=== PATIENT | female | born 2000 | race Caucasian/White ===

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

== ENCOUNTER 2023-06-06 11:34 | Outpatient (CLI) | payer BC, SELFPAY ==
[2023-06-08 06:43] LABS: DHEA-Sulfate 409 mcg/dL (44-286)
[2023-06-11 15:27] LABS: Testosterone Free 2.6 pg/mL (0.1-6.4); Testosterone Total 62 ng/dL (2-45)
== END 2023-06-06 11:35 | disposition home or self-care (01) ==
LOC: ANHLAB 11:37
PROVIDERS: PCP Nurse Practitioner Family; Visit Provider Obstetrics & Gynecology
DX: E28.2 Polycystic ovarian syndrome (principal)
CPT/HCPCS: 36415; 82627; 84402; 84403

== ENCOUNTER 2023-08-18 14:04 | Outpatient (CLI) | payer BC, SELFPAY ==
[2023-08-18 16:13] LABS: Alanine Aminotransferase 14 U/L (6-35); Albumin Level 4.3 g/dL (3.5-5.1); Alkaline Phosphatase 68 U/L (38-126); Anion Gap 11 mmol/L (4-12); Aspartate Amino Transferase 20 U/L (14-36); Bilirubin,Total 0.2 mg/dL (0.2-1.3); Blood Urea Nitrogen 12 mg/dL (7-17); Calcium 9.9 mg/dL (8.4-10.2); Carbon Dioxide 27 mmol/L (22-30); Chloride 103 mmol/L (98-107); Estimated Glomerular Filt Rate > 60; Glucose 98 mg/dL (65-110); Potassium 4.4 mmol/L (3.4-5.0); Sodium 141 mmol/L (137-145)
[2023-08-19 10:14] LABS: DHEA-Sulfate 383 mcg/dL (44-286)
[2023-08-19 13:09] LABS: Insulin Level Total 69.4 uIU/mL
[2023-08-20 13:22] LABS: Hemoglobin A1C 5.3 % (<5.7)
[2023-08-21 17:23] LABS: Testosterone Free 2.4 pg/mL (0.1-6.4); Testosterone Total 50 ng/dL (2-45)
[2023-09-01 22:09] LABS: Free Insulin 44.6 uIU/mL (1.5-14.9)
== END 2023-08-18 14:05 | disposition home or self-care (01) ==
LOC: ANHLAB 14:06
PROVIDERS: PCP Nurse Practitioner Family; Visit Provider Obstetrics & Gynecology
DX: E28.2 Polycystic ovarian syndrome (principal)
CPT/HCPCS: 36415; 80053; 82627; 83036; 83525; 83527; 84402; 84403

== ENCOUNTER 2023-08-22 00:24 | Day surgery (SDC) | payer BC, SELFPAY ==
[2023-08-18 10:12] VITALS: BMI 31.2
[2023-08-22 10:44] VITALS: BP 129/72; PULSE 85; RESP 16; TEMP 36.4; O2SAT 98
--- NOTE | 2023-08-22 10:53 | WPDANESEPPF ---
Anes - Initial Pre Proc Eval Procedure: Operation Date: 08/22/23 13:00 Proposed Procedures p Esophagogastroduodenoscopy - Henrry Alonzo MD Date/Time: 08/22/23 10:53 Surgeon: Henrry Alonzo MD Pre Op Diagnosis: GERD, Vomiting Patient Data Age: 23 Gender: F Height: 1.55 m Weight: 75.3 kg Last Vital Signs Temp 97.6 F 08/22/23 10:44 Pulse 85 08/22/23 10:44 Resp 16 08/22/23 10:44 BP 129/72 08/22/23 10:44 Pulse Ox 98 08/22/23 10:44 O2 Del Method Room Air 08/22/23 10:44 Allergies Allergy/AdvReac Type Severity Reaction Status Date / Time No Known Allergies Allergy Verified 08/22/23 10:42 Home Medications Medication Instructions Recorded Confirmed Type drospirenone 3 mg-ethinyl 1 tablet PO DAILY #112 tabs 07/30/23 08/22/23 Rx estradiol 0.03 mg tablet lansoprazole 30 mg capsule,delayed 30 mg PO BID 07/30/23 08/22/23 History release levothyroxine 25 mcg tablet 25 mcg PO DAILY 07/30/23 08/22/23 History spironolactone 100 mg tablet 100 mg PO DAILY #90 tabs 07/30/23 08/22/23 Rx metformin 500 mg tablet 500 mg PO DAILY #60 tabs 08/22/23 08/22/23 Rx Patient hx anesthesia problems: none Family hx anesthesia problems: none Results Review: All pre-operative results and documents have been reviewed as part of the pre-operative evaluation. [facility] Past Medical History Medical History (Updated 07/30/23 @ 15:14 by Sigrid Walton MD) Gastroesophageal reflux disease Hypothyroid PCOS (polycystic ovarian syndrome) Surgical History Surgical History H/O wisdom tooth extraction History of repair of ACL 06/2019 Family History Family History (Updated 07/30/23 @ 14:44 by Mahi Baez MA) Other Hyperlipidemia Social History Social History (Updated 07/30/23 @ 14:44 by Mahi Baez MA) Smoking status: Never smoker Alcohol intake: never Substance use: never Substance use type: does not use Do You Feel Safe in your Home?: Yes Lack of Transportation: No Lack of Food: Never True Current Housing: I Have Housing Concerned About Future Housing: No Difficulty Paying Gas/Electric Bills: No Difficulty Paying for Meds: No Currently Unemployed: No Education: High School Diploma/GED Difficulty w/ Childcare or Family Care: No Living arrangements: alone Additional living arrangements comments: IN COLLEGE LIVES ALONE, SUMMER AT HOME Occupation/Education: occupation Additional occupation/education comments: [employer] 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 [employer] Gender identity (if verbalized by the patient): Female Sexual Orientation (if Verbalized by the Patient): Straight or Heterosexual Spiritual care concerns: No Anes - Eval Final PreProcedure Day of Procedure 08/22/23 10:53 Patient weight: obese Heart: regular rate and rhythm Lungs: clear to auscultation Airway: Mallampati scale class II Neurological: alert and oriented Last oral intake: >/= 8 hours ASA classification: II Emergent: no Anesthetic plan: proceed Anesthesia type and monitoring: general GIVS and standard monitoring Results Review: All pre-operative results and documents have been reviewed as part of the pre-operative evaluation. Informed Consent: The patient's anesthetic plan and its attendant risks and benefits were discussed with the patient/family/POA. Questions were solicited and answers provided to the satisfaction of the patient/family/POA.
[2023-08-22] MEDS: LACTATED RINGERS 1,000 ML 150 ML IV CONT (10:55)
--- NOTE | 2023-08-22 11:27 | PM.HPGS ---
History of Present Illness History of Present Illness Consent: Risks, benefits, and alternatives have been discussed and questions answered. Patient agrees to proceed with procedure. Chief complaint: GERD, Vomiting Narrative: Kat Mcduffie is a 23 year old female with gerd for 2 years but much better since using lansoprazole bid, never had egd Review of Systems Review of Systems: All systems reviewed & are unremarkable except as noted in HPI and below PMFSH Past Medical History Medical History (Updated 08/22/23 @ 11:28 by Henrry Alonzo MD) Gastroesophageal reflux disease Hypothyroid PCOS (polycystic ovarian syndrome) Surgical History Surgical History H/O wisdom tooth extraction History of repair of ACL 06/2019 Family History Family History (Updated 07/30/23 @ 14:44 by Mhai Baez MA) Other Hyperlipidemia Social History Social History (Updated 07/30/23 @ 14:44 by Mahi Baez MA) Smoking status: Never smoker Alcohol intake: never Substance use: never Substance use type: does not use Do You Feel Safe in your Home?: Yes Lack of Transportation: No Lack of Food: Never True Current Housing: I Have Housing Concerned About Future Housing: No Difficulty Paying Gas/Electric Bills: No Difficulty Paying for Meds: No Currently Unemployed: No Education: High School Diploma/GED Difficulty w/ Childcare or Family Care: No Living arrangements: alone Additional living arrangements comments: IN COLLEGE LIVES ALONE, SUMMER AT HOME Occupation/Education: occupation Additional occupation/education comments: [employer] 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[employer] 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 [employer] Gender identity (if verbalized by the patient): Female Sexual Orientation (if Verbalized by the Patient): Straight or Heterosexual Spiritual care concerns: No Meds Home Medications and Allergies Home Medications Medication Instructions Recorded Confirmed Type drospirenone 3 mg-ethinyl 1 tablet PO DAILY #112 tabs 07/30/23 08/22/23 Rx estradiol 0.03 mg tablet lansoprazole 30 mg capsule,delayed 30 mg PO BID 07/30/23 08/22/23 History release levothyroxine 25 mcg tablet 25 mcg PO DAILY 07/30/23 08/22/23 History spironolactone 100 mg tablet 100 mg PO DAILY #90 tabs 07/30/23 08/22/23 Rx metformin 500 mg tablet 500 mg PO DAILY #60 tabs 08/22/23 08/22/23 Rx Allergies Allergy/AdvReac Type Severity Reaction Status Date / Time No Known Allergies Allergy Verified 08/22/23 10:42 Vital Signs Vital Signs - 24 hr 08/22/23 10:44 Temperature 97.6 F Pulse Rate 85 Respiratory Rate 16 Blood Pressure 129/72 Pulse Oximetry 98 Oxygen Delivery Room Air Exam Const: General: comfortable and no acute distress HENMT: Face/Nose/Sinus: Normal nares present Eyes: General: appearance normal, both eyes and all related structures Neck: Neck: no JVD Resp: Auscultation: clear to auscultation bilaterally Cardio: Rate: regular rate Rhythm: regular rhythm GI: Inspection: non-distended GI Palp: Yes Soft to palpation Skin: General skin exam: normal color Neuro: General: gait normal Speech: normal speech Extrem: General: normal to inspection Psych: Mental Status: mental status grossly normal Assessment and Plan Assessment and plan (1) Gastroesophageal reflux disease: Code(s): K21.9 - Gastro-esophageal reflux disease without esophagitis Status: Acute Assessment and Plan: egd with bx will refill her ppi
[2023-08-22 11:34] VITALS: BP 119/79; PULSE 87; RESP 16; O2SAT 98
[2023-08-22 11:44] VITALS: BP 129/83; PULSE 79; RESP 22; O2SAT 97
[2023-08-22 11:54] VITALS: BP 122/86; PULSE 61; RESP 14; O2SAT 100
== END 2023-08-22 12:00 | disposition home or self-care (01) ==
PROVIDERS: PCP Nurse Practitioner Family; Visit Provider Internal Medicine Gastroenterology
PROC: 0DJ08ZZ Inspection of Upper Intestinal Tract, Via Natural or Artificial Opening Endoscopic (ICD-10-PCS; CPT 43235; principal; 2023-08-22 13:00)
DX: K31.89 Other diseases of stomach and duodenum (principal); K21.9 Gastro-esophageal reflux disease without esophagitis; E03.9 Hypothyroidism, unspecified; E28.2 Polycystic ovarian syndrome; E66.9 Obesity, unspecified; Z68.31 Body mass index [BMI] 31.0-31.9, adult; Z98.890 Other specified postprocedural states; Z79.84 Long term (current) use of oral hypoglycemic drugs
CPT/HCPCS: 43239; 88305; J2704; J7120

== ENCOUNTER 2024-08-18 11:18 | Outpatient (CLI) | payer BC, SELFPAY ==
--- OUTSIDE RECORDS SUMMARY | 2024-08-18 11:21 | XMS_ITS | Encounter Summary ---
Author Organization [facility] Address [address] [place] [address] Care Team Providers Care Jig Grinder Set Up Operator Name Role Phone Steven Rangel MD Primary Care Provide r Encounter Details Date Type Department Care Team (Late st Contact Info) Description 09/21/2021 Cell>Point Message [address] [address] Sukumar Rangel, [facility] [address] [address] Reflux Social History Tobacco Use Types Packs/Day Years Used Date Smoking Tobacco: Never Smokeless Tobacco: Never Alcohol Use Standard Drinks/Week Comments Not Currently 0 (1 standard drink = 0.6 oz pur e alcohol) PHQ-2 Answer Date Recorded PHQ-2 Score - If the patient scores above 3, please move on to questions 3-9 0 07/24/2021 Comments No Sex and Gender Information Value Date Recorded Sex Assigned at Not on file Legal Sex Female 11:14 PM CDT Gender Identity Not on file Sexual Orientation Not on file COVID-19 Exposure Response Date Recorded In the last 10 days, have yo u been in contact with someone who was confirmed or suspected to have Coronavirus/COVID-19? No / Unsure 09/06/2021 10:37 AM CDT documented as of this encounter Progress Notes * Judith Chanel RN - 09/21/2021 3:20 PM CDT Please advise. documented in this encounter Plan of Treatment Upcoming Encounters Date Type Department Care Team (Late st Contact Info) Description 09/02/2024 8:00 AM CDT Office Visit [facility] [address] [place] [address] Sukumar Rangel, [facility] [address] [place] [address] documented as of this encounter Visit Diagnoses Not on filedocumented in this encounter Additional Health Concerns Assessment Noted Time PHQ-9 Depression Total Score: 1 07/14/19 19 1:06 PM CDT documented as of this encounter Care Teams Jig Grinder Set Up Operator Relationship Specialty [place] [address] [place] [address] PCP - General INTERNAL MEDICINE 07/13/18 documented as of this encounter
--- OUTSIDE RECORDS SUMMARY | 2024-08-18 11:21 | XMS_ITS | Encounter Summary ---
Author Organization [facility] Address [facility] [place] [address] Care Team Providers Care Coffee Sampler Name Role Phone Steven Rangel MD Primary Care Provide r Encounter Details Date Type Department Care Team (Late st Contact Info) Description 03/07/2022 Kaizen Platform Message [facility] [address] [address] [place] [address] [place] [address] [place] [address] Reflux Social History Tobacco Use Types [...] on file Sexual Orientation Not on file documented as of this encounter Progress Notes * Sukumar Rangel, VANE - 03/08/2022 12:54 PM CSTSummary: GERD Tell pt I called in Protonix 40 mg to her pharmacy, it is stronger than Omeprazole-Prilosec, take 1tab every morning, also can chew up Pepcid Complete anytime of day or night for breakthrough acid symptoms, try to limit caffeine to 1 per day as well, call in 1 week with update [employer]IT[employer] MAINTENANCE * VANE Loya - 03/08/2022 10:52 AM CSTSummary: GERD Tell pt there is a prescription acid med that could work stronger than otc Prilosec, is there a local pharmacy she can use? Also ask how is her caffeine intake? [employer] MAINTENAN[employer] documented in this encounter Plan of Treatment Upcoming Encounters Date Type Department Care Team (Late st Contact Info) Description 09/02/2024 8:00 AM CDT Office Visit [facility] [address] [place] [id number] Sukumar Rangel FNP [address] [place] [address] documented as of this encounter Visit Diagnoses Not on filedocumented in this encounter Additional Health Concerns Assessment Noted Time PHQ-9 Depression Total Score: 1 07/14/19 19 1:06 PM CDT documented as of this encounter Care Teams Coffee Sampler Relationship Specialty [place] [address] [place] [address] PCP - General INTERNAL MEDICINE 07/13/18 documented as of this encounter
--- OUTSIDE RECORDS SUMMARY | 2024-08-18 11:21 | XMS_ITS | Encounter Summary ---
Author Organization [facility] Address [address] [place] [address] Care Team Providers Care Assistant Producer Name Role Phone Steven Rangel MD Primary Care Provide r Encounter Details Date Type Department Care Team (Late st Contact Info) Description 04/22/2022 Black Raven and Stag Message [facility] [address] [place] [address] [facility] [address] [place] [address] Reflux Social History Tobacco Use Types Packs/Day Years Used Date Smoking Tobacco: Never Smokeless Tobacco: Never Alcohol Use Standard Drinks/Week Comments Not Currently 0 (1 standard drink = 0.6 oz pur e alcohol) PHQ-2 Answer Date Recorded Patient Health Questionnaire-2 Score 0 04/25/2022 Comments No Sex and Gender Information Value Date Recorded Sex Assigned at Not on file Legal Sex Female 11:14 PM CDT Gender Identity Not on file Sexual Orientation Not on file COVID-19 Exposure Response Date Recorded In the last 10 days, have yo u been in contact with someone who was confirmed or suspected to have Coronavirus/COVID-19? No / Unsure 04/25/2022 7:36 AM CDT documented as of this encounter Functional Status * Over the past 2 weeks, how often have you been bothered by any of the following problems? Question Answer Date of Assessment Author Status Little interest or pleasure in doing things Not at all 04/25/2022 7:39 AM CDT Mitra Kim MA Active Feeling down, depressed, or hopeless Not at all 04/25/2022 7:39 AM CDT Betty Kim MA Active Patient Health Questionnaire-2 Score 0 04/25/2022 7:39 AM CDT Ulices Kim MA Active documented as of this encounter Plan of Treatment Upcoming Encounters Date Type Department Care Team (Late st Contact Info) Description 09/02/2024 8:00 AM CDT Office Visit [facility] [address] [place] [address] Sukumar Rangel FNP [address] [place] [address] documented as of this encounter Visit Diagnoses Not on filedocumented in this encounter Additional Health Concerns Assessment Noted Time PHQ-9 Depression Total Score: 1 07/14/19 19 1:06 PM CDT documented as of this encounter Care Teams Assistant Producer Relationship Specialty [place] [address] [place] [address] PCP - General INTERNAL MEDICINE 07/13/18 documented as of this encounter
--- OUTSIDE RECORDS SUMMARY | 2024-08-18 11:21 | XMS_ITS | Encounter Summary ---
Author Organization [facility] Address [address] [place] [address] Care Team Providers Care Furniture Assembler Name Role Phone Steven Rangel MD Primary Care Provide r Encounter Details Date Type Department Care Team (Late Contact Info) Description 06/13/2022 Smart [place] Message Enc [facility] [address] [place] [address] [facility] Provider Schedule Appointment for Annual Physical Social History Tobacco Use Types Packs/Day Years Used Date Smoking Tobacco: Never Passive Smoke Exposure: Never Smokeless Tobacco: Never Alcohol Use Standard [...] on file documented as of this encounter Plan of Treatment Upcoming Encounters Date Type Department Care Team (Late Contact Info) Description 09/02/2024 8:00 AM CDT Office Visit [facility] [address] [place] [address] Sukumar Rangel, [facility] [address] [place] [address] documented as of this encounter Visit Diagnoses Not on filedocumented in this encounter Additional Health Concerns Assessment Noted Time PHQ-9 Depression Total Score: 1 07/14/19 19 1:06 PM CDT documented as of this encounter Care Teams Furniture Assembler Relationship Specialty [place] [address] [facility] [address] [place] [address] PCP - General INTERNAL MEDICINE 07/13/18 documented as of this encounter
--- OUTSIDE RECORDS SUMMARY | 2024-08-18 11:21 | XMS_ITS | Encounter Summary ---
Author Organization [facility] Address [address] [place] [address] Care Team Providers Care Psychologists Name Role Phone Steven Rangel MD Primary Care Provide r Encounter Details Date Type Department Care Team (Late st Contact Info) Description 03/26/2022 Vetteryhart Message Enc [facility] [address] [place] [address] Sukumar Rangel, BUSINESS CONSULTANT [address] [place] [address] Reflux Social History Tobacco Use [...] Description 09/02/2024 8:00 AM CDT Office Visit [facility] [address] [place] [address] Sukumar Rangel, [facility] [address] [place] [address] documented as of this encounter Visit Diagnoses Not on filedocumented in this encounter Additional Health Concerns Assessment Noted Time PHQ-9 Depression Total Score: 1 07/14/19 19 1:06 PM CDT documented as of this encounter Care Teams Psychologists Relationship Specialty [place] [address] [place] [address] PCP - General INTERNAL MEDICINE 07/13/18 documented as of this encounter
--- OUTSIDE RECORDS SUMMARY | 2024-08-18 11:21 | XMS_ITS | Encounter Summary ---
Author Organization [facility] Address [address] [place] [address] Care Team Providers Care Transportation Engineer Name Role Phone Steven Rangel MD Primary Care Provide r Encounter Details Date Type Department Care Team (Late st Contact Info) Description 08/02/2024 aWherehart Message Enc [facility] [address] [place] [address] Sukumar Rangel, ENTRY LEVEL ELECTRICIAN [address] [place] [address] Yearly appt Social History Tobacco Use Types Packs/Day Years Used Date Smoking Tobacco: Never Passive Smoke Exposure: Never Smokeless Tobacco: Never Alcohol Use Standard Drinks/Week Comments Not Currently 0 (1 standard drink = 0.6 oz pur e alcohol) PHQ-2 Answer Date Recorded Patient Health Questionnaire-2 Score 0 07/30/2023 Comments No Sex and Gender Information Value Date Recorded Sex Assigned at Not on file Legal Sex Female 11:14 PM CDT Gender Identity Not on file Sexual Orientation Not on file documented as of this encounter Plan of Treatment Upcoming Encounters Date Type Department Care Team (Late st Contact Info) Description 09/02/2024 8:00 AM CDT Office Visit [facility] [address] [place] [address] Sukumar Rangel, [facility] [address] [place] [address] Scheduled Orders Name Type Priority Associated Diagnoses Orde r Schedule COMPREHENSIVE METABOLIC PANEL Lab Routine Preventative health care Acquired hypothyroidism Expected: 08/03/2024, Expires: 08/03/2025 CBC W/DIFF AUTOMATED Lab Routine Preventative health care Acquired hypothyroidism Expected: 08/03/2024, Expires: 08/03/2025 TSH W/REFLEX Lab Routine Preventative health care Acquired hypothyroidism Expected: 08/03/2024, Expires: 08/03/2025 LIPID PANEL Lab Routine Preventative health care Acquired hypothyroidism Expected: 08/03/2024, Expires: 08/03/2025 INSULIN,TOTAL Lab Routine Preventative health care Acquired hypothyroidism Expected: 08/03/2024, Expires: 08/03/2025 documented as of this encounter Visit Diagnoses Diagnosis Preventative health care- Primary Routine general medical examination at a health care facility Acquired hypothyroidism Unspecified hypothyroidism documented in this encounter Additional Health Concerns Assessment Noted Time PHQ-9 Depression Total Score: 1 07/14/19 19 1:06 PM CDT documented as of this encounter Care Teams Transportation Engineer Relationship Specialty [place] [address] [address] PCP - General INTERNAL MEDICINE 07/13/18 documented as of this encounter
--- OUTSIDE RECORDS SUMMARY | 2024-08-18 11:21 | XMS_ITS | Encounter Summary ---
Author Organization [facility] Address [address] [place] [address] Care Team Providers Care Silk Folder Name Role Phone Steven Rangel MD Primary Care Provide r Encounter Details Date Type Department Care Team (Late st Contact Info) Description 08/29/2022 Insikt [employer]hart Message Enc [facility] [address] [place] [address] Sukumar Rangel, GRIT BLASTER [address] [place] [address] General Question Social History Tobacco Use Types Packs/Day Years Used Date Smoking Tobacco: Never Passive Smoke Exposure: Never Smokeless Tobacco: Never Alcohol Use Standard Drinks/Week Comments Not Currently 0 (1 standard drink = 0.6 oz pur e alcohol) PHQ-2 Answer Date Recorded Patient Health Questionnaire-2 Score 0 06/24/2022 Comments No Sex and Gender Information Value Date Recorded Sex Assigned at Not on file Legal Sex Female 11:14 PM CDT Gender Identity Not on file Sexual Orientation Not on file documented as of this encounter Plan of Treatment Upcoming Encounters Date Type Department Care Team (Late st Contact Info) Description 09/02/2024 8:00 AM CDT Office Visit [facility] [address] [place] [address] Sukumar Rangel, VANE [address] [place] [address] documented as of this encounter Visit Diagnoses Not on filedocumented in this encounter Additional Health Concerns Assessment Noted Time PHQ-9 Depression Total Score: 1 07/14/19 19 1:06 PM CDT documented as of this encounter Care Teams Silk Folder Relationship Specialty [place] [address] [place] [address] PCP - General INTERNAL MEDICINE 07/13/18 documented as of this encounter
--- OUTSIDE RECORDS SUMMARY | 2024-08-18 11:21 | XMS_ITS | Encounter Summary ---
Author Organization [facility] Address [address] [place] [address] Care Team Providers Care Occupational Psychologist Name Role Phone Steven Rangel MD Primary Care Provide r Encounter Details Date Type Department Care Team (Late st Contact Info) Description 03/15/[address] [facility] [address] [place] [address] Sukumar Rangel, CHEMICAL ENGINEERING PROFESSOR [address] [place] [address] Reflux Social History Tobacco Use [...] 09/02/2024 8:00 AM CDT Office Visit [facility] [address] [place] [address] Sukumar Rangel, CHEMICAL ENGINEERING PROFESSOR [address] [place] [address] documented as of this encounter Visit Diagnoses Not on filedocumented in this encounter Additional Health Concerns Assessment Noted Time PHQ-9 Depression Total Score: 1 07/14/19 19 1:06 PM CDT documented as of this encounter Care Teams Occupational Psychologist Relationship Specialty [place] [address] [place] [id number] PCP - General INTERNAL MEDICINE 07/13/18 documented as of this encounter
--- OUTSIDE RECORDS SUMMARY | 2024-08-18 11:21 | XMS_ITS | Encounter Summary ---
Author Organization [facility] Address [address] [place] [address] Care Team Providers Care Railroad Dining Car Steward/Stewardess Name Role Phone Steven Rangel MD Primary Care Provide r Encounter Details Date Type Department Care Team (Late st Contact Info) Description 04/26/2022 MyChart Message Enc [facility] [address] [place] [address] Sukumar Rangel, [facility] [address] [place] [address] Blood work Social History Tobacco Use Types Packs/Day Years [...] suspected to have Coronavirus/COVID-19? No / Unsure 04/26/2022 9:47 AM CDT documented as of this encounter Plan of Treatment Upcoming Encounters Date Type Department Care Team (Late st Contact Info) Description 09/02/2024 8:00 AM CDT Office Visit [facility] [address] [place] [address] Sukumar Rangel FNP [address] [place] [address] documented as of this encounter Visit Diagnoses Not on filedocumented in this encounter Additional Health Concerns Assessment Noted Time PHQ-9 Depression Total Score: 1 07/14/19 19 1:06 PM CDT documented as of this encounter Care Teams Railroad Dining Car Steward/Stewardess Relationship Specialty [place] [address] [place] [address] PCP - General INTERNAL MEDICINE 07/13/18 documented as of this encounter
--- OUTSIDE RECORDS SUMMARY | 2024-08-18 11:21 | XMS_ITS | Clinical Summary ---
Author Organization [facility] Address [address] [place] [address] Care Team Providers Care Whitesmith Name Role Phone Steven Rangel MD Primary Care Provide r Allergies No known active allergies Medications probiotic (FLORAJEN3) Cap capsule Take 1 capsule by mouth daily with breakfast. Active cetirizine (ZYRTEC) 10 MG tablet Take 1 tablet (10 mg total) by mouth daily as needed for Allergies (Seasonal). Active spironolactone (ALDACTONE) 50 MG tablet Take 2 tablets (100 mg total) by mouth daily. 3 Active drospirenone-ethin yl estradiol (AARON) 3-0.03 MG tablet Take 1 tablet by mouth daily. 4 Active spironolactone (ALDACTONE) 100 MG tablet Take 1 tablet (100 mg total) by mouth daily. 4 Active lansoprazole (PREVACID) 30 MG capsule Take by mouth 2 (two) times a day. 4 Active levothyroxine (SYNTHROID) 25 MCG tabletIndications: Acquired hypothyroidism take 1 tablet by mouth every morning 90 tablet 3 4 Active pantoprazole EC (PROTONIX) 40 MG tabletIndications: Gastroesophageal reflux disease without esophagitis take 1 tablet by mouth every day 90 tablet 3 4 Active Active Problems Problem Noted Date Diagnosed Date Acquired hypothyroidism 07/24/2021 Gastroesophageal reflux disease without esophagi tis 07/24/2021 Rupture of anterior cruciate ligament of right knee, subsequent encounter 05/03/2019 Acute lateral meniscus tear of right knee 2019 Regular astigmatism of both eyes 07/15/2018 Acne 08/20/2012 Resolved Problems Problem Noted Date Diagnosed Date Resolved Date Tear of lateral meniscus of right knee, current 05/03/2019 08/20/2019 Overview (08/16/2019): Added automatically from request for surgery [id number] Other viral warts 07/13/2018 08/20/2019 No known health problems 06/13/201711/2019 Encounters Date Type Department Care Team Description 08/02/2024 MyChart Message [facility] [address] [place] [address] Sukumar Rangel, VANE Yearly appt from Last 3 Months Immunizations Immunization Administration Dates Next Due Dtap (Generic) 02/13/2007, 4,2002,06/04,2002 HPV GARDASIL 9-VALENT 02/23/2020,10/20/2019,070 07/2019 Hepatitis B 01/27/2003,2002,2002 Hib Vaccine, Prp-Omp 01/27/2003,2002,04/19 MMR (Generic) 02/13/2007,05/02/2003 Meningcoccal Group B (Bexser o)(aka Meningitis) 08/18/2020,07/14/2020 Meningococcal (Menactra) 07/13/2018 Meningococcal Vac A,C,Y,W-135 Sc 09/20/2013 PFIZER COVID-19 (ORIGINAL FO RMULATION, PURPLE CAP) mRNA, LNP-S, PF, 30 MCG/0.3 ML DOSE 04/09/2021,08/09/2020,07/18/2020 Pneumococcal (Prevnar 13) 01/27/2003,,2002,04/19 Polio Ipv (Generic) 02/13/2007, 4,2002,04/19 Tdap (Generic) 09/20/2013 Varicella Vaccine 02/13/2007,01/27/2003 Family History Medical History Relation Comments None Brother Hyperlipidemia Father Multiple Sclerosis Maternal Grandfather Multiple Sclerosis Maternal Grandmother None Maternal Uncle None Mother Multiple Sclerosis Paternal Aunt Hyperlipidemia Paternal Grandfather Multiple Sclerosis Paternal Grandmother Hyperlipidemia Paternal Uncle Multiple Sclerosis Paternal Uncle Relation Status Comments Brother Father Maternal Grandfather Maternal Grandmother Maternal Uncle Mother Paternal Aunt Paternal Grandfather Paternal Grandmother Paternal Uncle Social History Tobacco Use Types Packs/Day Years [...] on file Sexual Orientation Not on file Last Filed Vital Signs Vital Sign Reading Time Taken Comments Blood Pressure 130/87 07/30/2023 7:58 AM CDT Pulse 80 07/30/2023 7:58 AM CDT Temperature 36.7 C (98.1 F) 07/30/2023 7:58 AM CDT Respiratory Rate 18 07/30/2023 7:58 AM CDT Oxygen Saturation 100% 07/30/2023 7:58 AM CDT Inhaled Oxygen Concentration - - Weight 75.3 kg (166 lb) 07/30/2023 7:58 AM CDT Height 154.9 cm (5' 1) 07/30/2023 7:58 AM CDT Body Mass Index 31.37 07/30/2023 7:58 AM CDT Plan of Treatment Upcoming Encounters Date Type Department Care Team (Late st Contact Info) Description 09/02/2024 8:00 AM CDT Office Visit [facility] [address] [place] [address] Sukumar Rangel, [facility] [address] [place] [address] Health Maintenance Due Date Last Done Comments Cervical Cancer Screening Pap Smear (Age 21 to 29) Every 3 Years 2002 Cervical Cancer Screening 2002 DTaP, Tdap and Td Vaccines (7 - Td or Tdap) 09/21/2023 09/20/2013, 02/13/2007, 05/02/2003, Additional history exists COVID-19 Vaccine ( season) 2023 04/09/2021, 08/09/2020, 07/18/2020 PHQ-2 (Physician [place]) 02/11/2024 07/30/2023 Annual Physical 07/29/2024 07/30/2023, 06/10, 08/16/2019, Additional history exists Hepatitis B Vaccines Completed 01/27/2003, 2002, 2002 Pneumococcal Vaccine: Pediatrics (0 to 5 Years) and At-Risk Patients (6 to 49 Years) Completed 01/27/2003, 2002, 2002, Additional history exists Meningococcal Vaccine Completed 07/13/2018, 014 HPV Vaccines Completed 02/23/2020, 10/2019, 08/16/2019 Meningococcal B Vaccine Completed 08/18/2020, 07/14 Hepatitis C Completed 07/30/2023 RSV Immunizations Under 20 Months Aged Out No longer eligible based on patient's age to complete this topic Procedures Procedure Name Priority Date/Time Associated Diagnosis Comments HEPATITIS C ANTIBODY Routine 07/30/2023 9:04 AM CDT Preventative health care Encounter for hepatitis C screening test for low risk patient from Last 3 Months or Most Recently Relevant to Health Maintenance Results * HEPATITIS C AB ([facility] ONLY) (07/30/2023 9:04 AM CDT) HEPATITIS C AB NON-REACTI VE NON-REACTI VE 07/30/2023 3:06 PM CDT [facility] 07/30/2023 9:04 AM CDT us Sukumar [facility] Final Resul t [facility] [address] [place] [address], [place] [phone] from Last 3 Months or Most Recently Relevant to Health Maintenance Insurance GENERIC - [employer] [facility] Care Teams Whitesmith Relationship Specialty [place] [address] [place] [id number] PCP - General INTERNAL MEDICINE 07/13/18
--- OUTSIDE RECORDS SUMMARY | 2024-08-18 11:21 | XMS_ITS | Encounter Summary ---
Author Organization [facility] Address [address] [place] [address] Care Team Providers Care Tubing Drier Name Role Phone Steven Rangel MD Primary Care Provide r Encounter Details Date Type Department Care Team (Late st Contact Info) Description 04/03/2023 [employer] Message Enc [facility] [address] [place] [address] Sukumar Rangel, CERTIFIED NURSING ATTENDANT [address] [place] [address] Reflux Social History Tobacco Use [...] Description 09/02/2024 8:00 AM CDT Office Visit [facility] [address] [place] [address] Sukumar Rangel, VANE [address] [place] [address] documented as of this encounter Visit Diagnoses Not on filedocumented in this encounter Additional Health Concerns Assessment Noted Time PHQ-9 Depression Total Score: 1 07/14/19 19 1:06 PM CDT documented as of this encounter Care Teams Tubing Drier Relationship Specialty [place] [address] [place] [address] PCP - General INTERNAL MEDICINE 07/13/18 documented as of this encounter
[2024-08-18 13:09] LABS: Thyroid Stimulating Hormone Reflex 0.660 uIU/mL (0.465-4.68)
== END 2024-08-18 11:19 | disposition home or self-care (01) ==
LOC: ANHLAB 11:19
PROVIDERS: PCP Nurse Practitioner Family; Visit Provider Obstetrics & Gynecology
DX: E28.2 Polycystic ovarian syndrome (principal)
CPT/HCPCS: 36415; 84443